=== PATIENT | male | born 1955 | race Caucasian/White ===

== ENCOUNTER 2024-12-28 15:32 | Emergency (ER) | payer MEDICARE, BC ==
[2024-12-28] MEDS: Bacitracin Oint 1 GM U/D Packet TOP ONE (16:32)
[2024-12-28] MEDS: Diphtheria,Pertussis(Acell),Tetanus Vaccine 0.5 ML Syringe IM ONE (16:34)
== END 2024-12-28 16:22 | disposition home or self-care (01) ==
LOC: LB.ED 15:32
DX: S60.457A Superficial foreign body of left little finger, initial encounter (principal); Z79.82 Long term (current) use of aspirin; Z79.899 Other long term (current) drug therapy; Z88.0 Allergy status to penicillin; W45.8XXA Other foreign body or object entering through skin, initial encounter; Y93.89 Activity, other specified
CPT/HCPCS: 90471; 90715; 99282; 99283-25; J2003